=== PATIENT | male | born 1965 | race Caucasian/White ===

== ENCOUNTER 2022-07-29 15:00 | Outpatient (RCR) | payer BC, SELFPAY | END 2023-03-02 23:59 | disposition home or self-care (01) | PROVIDERS: PCP Family Medicine; Visit Provider Family Medicine | DX: M54.40 Lumbago with sciatica, unspecified side (principal); Z51.89 Encounter for other specified aftercare | CPT/HCPCS: 97012; 97110; 97140; 97162 ==

== ENCOUNTER 2023-02-16 06:09 | Day surgery (SDC) | payer BC, SELFPAY ==
[2023-02-16] MEDS: LACTATED RINGERS 1000 ML 1,000 ML 100 ML IV (06:10)
[2023-02-16] MEDS: fentaNYL 100 MCG/2 ML inj IVP (06:10)
[2023-02-16] MEDS: MIDAZOLAM HCL 1 MG/ML inj IVP (06:10)
[2023-02-16] MEDS: CELECOXIB 200 MG CAPSULE PO (06:10)
[2023-02-16] MEDS: ACETAMINOPHEN 500 MG TABLET 1000 MG PO (06:10)
[2023-02-16] MEDS: OXYCODONE (CR) 10 MG TAB.ER.12H PO (06:10)
[2023-02-16 06:26] VITALS: BMI 29.2
[2023-02-16] MEDS: SODIUM CHLORIDE 0.9 % (FLUSH) 10 ML SYRINGE IVF (06:48)
[2023-02-16 06:55] VITALS: BP 126/86; PULSE 69; RESP 18; TEMP 36.3; O2SAT 97
[2023-02-16 07:06] VITALS: BP 133/81; PULSE 66; RESP 18; O2SAT 99
[2023-02-16] MEDS: CEFAZOLIN 2 GM INJ IVP (07:25)
--- NOTE | 2023-02-16 08:50 | P.ORPRC_ITS ---
Procedure Note Date of procedure: 02/16/23 Procedure: PREOPERATIVE DIAGNOSIS: Left thumb CMC joint osteoarthritis POSTOPERATIVE DIAGNOSIS: Left thumb CMC joint osteoarthritis NAME OF OPERATION: Left thumb CMC arthroplasty (LRTI) SURGEON: Saul Joseph MD B2B APPOINTMENT SETTER: Lorena Robiosn PA-C ANESTHESIA: Axillary block plus monitored anesthesia care ESTIMATED BLOOD LOSS: 0 mL COMPLICATIONS: None SPECIMENS: None DRAINS: None PREOPERATIVE ANTIBIOTICS: Ancef 2 grams INDICATIONS: The patient is a 57-year-old male with a history of left thumb CMC joint osteoarthritis. Despite appropriate nonoperative management, including activity modification, antiinflammatories, ztzw-esr-oltnzah pain medication, bracing, occupational therapy, and injections they continue to have pain and disability. Operative intervention was offered. The risks, benefits and expected outcomes were discussed in detail. These included but were not limited to: Infection, bleeding, injury to blood vessel or nerve, venous thromboembolism. All questions were answered to their satisfaction. Use of an human resources assistant manager was necessary for patient positioning, soft tissue retraction, wound closure and dressing and splint application. PROCEDURE: An axillary block was placed by anesthesia. The patient was placed supine on the operating room table. IV sedation was administered. The left upper extremity was prepped and draped in the usual sterile fashion. The limb was exsanguinated with the Joseph bandage. The pneumatic tourniquet was inflated to 250 mmHg. A longitudinal incision was made just dorsal to the 1st dorsal compartment at the base of the thumb. Subcutaneous dissection was taken with tenotomy scis sors. Several small crossing veins were cauterized and divided. The base of the thumb metacarpal was exposed. The CMC joint capsule was incised longitudinally. Subperiosteal dissection of the trapezium was carried both dorsally and volarly. Likewise, the base of the thumb metacarpal was subperiosteally exposed. The trapezium was dissected free with the 15 blade and the [place] elevator. It was removed intact. Attention was then turned to the FCR graft harvest. A transverse incision was made at the musculotendinous junction of the FCR in the volar forearm. Subcutaneous dissection was taken with tenotomy scissors to the tendon. The tendon was freed up from the muscle fibers and was divided transversely. We then pulled the tendon graft into the distal incision at the base of the thumb. We placed a 2-0 FiberWire suture in the deep capsule. A 2.8 mm socket was drilled on the radial side of the base of the index finger metacarpal. A loop of labral tape was placed in the socket and secured with a 3 mm x 8 mm BioComposite anchor. A guide pin was drilled through the dorsum of the base of the thumb metacarpal exiting at the volar peak of the base of thumb metacarpal. A 5 mm tunnel was drilled. The tendon passer was placed through the tunnel. We pulled the tendon graft and both limbs of the labral tape into the tunnel. We maximally tensioned the graft and then placed a 4.75 x 15 mm Arthrex BioComposite tenodesis screw just proximal to the graft. The graft was then pulled proximally and was secured to the dorsal bone of the base of the metacarpal with 2-0 FiberWire suture x2. We then used our previously placed 2-0 FiberWire suture in the deep capsule and folded the graft back and forth over these sutures. The graft was placed in the depth of the wound and this FiberW mathew suture was tied over the top to secure it in position. The wound was irrigated with normal saline. The capsule was closed with a 3-0 Vicryl in an interrupted wzpkys-pa-hdaua fashion. Wounds were closed with the 3-0 Vicryl and a 4-0 Monocryl. Glue was used to seal the skin. A dry dressing and short-arm thumb spica splint were applied, the tourniquet was released. Sponge and needle counts were correct x 2. The patient tolerated the procedure well. There were no apparent complications. They were carefully transferred to the hospital bed and taken to the postanesthesia care unit in satisfactory condition. PLAN: The patient will be discharged to home. They will work on ice and elevation of the hand. They will follow up in the office next week for wound check and three views of the thumb, out of the splint prior to being seen, in preparation for a forearm based thumb spica Orthoplast splint and gentle range of motion.
[2023-02-16 09:30] VITALS: BP 132/88; PULSE 62; RESP 16; TEMP 36.4; O2SAT 94
--- NOTE | 2023-02-16 09:37 | W.ANESCHARGE ---
Anesthesia Charges Start Date/Time Anesthesia Start Date: 02/16/23 Anesthesia Start Time: 07:14 Stop Date/Time Anesthesia Stop Date: 02/16/23 Anesthesia Stop Time: 09:32
[2023-02-16 09:46] VITALS: BP 110/88; PULSE 66; RESP 18; O2SAT 97
[2023-02-16 10:00] VITALS: BP 114/93; PULSE 62; RESP 20; O2SAT 95
--- NOTE | 2023-02-16 10:09 | P.NB_ITS ---
Nerve Block Nerve Block Time Seen by Provider: 07:00 Type of block requested by surgeon for post-operative analgesia: axillary Side: left Time out performed: Yes Verification of patient name: Yes Verification of date of : Yes Site marking: site marked Name of person performing procedure: Almas Wood Continuous monitoring Was continuous monitoring of O2 sat, B/P, nuclear monitoring technician, recorded every 15 minutes?: Yes Procedure Checklist: sterile prep, needles and gloves Ultrasound guided. Images saved: Yes Medications given in 5ml increments after negative aspiration: Ropivicaine %: 0.5 mL: 20 Needle gauge: 20 Decadron (mg): 10 Precedex (mcg): 25 Patient tolerated procedure well: Yes Additional comments: Injected in 5ml increments after negative aspiration Block Charges Block Charge (with Pro Fee): Axillary Nerve Use of Ultrasound Machine for Block: Yes- US Guidance/pain block
--- NOTE | 2023-02-16 10:14 | SUR.PREOP ---
TIME?OUT:?0700 PT/RN/MDA?VERIFICATION?OF?SURGICAL?SITE,?PROCEDURE,?AND?CONSENT OBTAINED?PRIOR?TO?INVASIVE?PROCEDURE.left thumb rn surgical supplies sterilizer pt and consent
[2023-02-16 10:15] VITALS: BP 112/74; PULSE 64; RESP 20; TEMP 36.7; O2SAT 98
== END 2023-02-16 10:35 | disposition home or self-care (01) ==
PROVIDERS: PCP Family Medicine; Visit Provider Orthopaedic Surgery
PROC: (CPT 25447; principal; 2023-02-16 07:15)
DX: M19.042 Primary osteoarthritis, left hand (principal); G89.18 Other acute postprocedural pain
CPT/HCPCS: 25447; 20924; 1830; 64450; 76942; A4580; A9270; C1713; J0690; J1100; J2250; J2704; J2795; J3010; J7120

== ENCOUNTER 2023-05-17 14:30 | Outpatient (RCR) | payer BC, SELFPAY ==
--- NOTE | 2023-03-03 09:57 | PT.OPEX ---
PT [facility] Outpatient Eval PT [facility] Outpatient Eval Start: 03/03/23 07:56 Freq: Status: Active Protocol: Document 03/03/23 07:57 AMS (Rec: 03/03/23 09:44 AMS [id number]) E-signed By Shanna Jones, PT Physical Therapy Outpatient Evaluation Insurance Information Insurance Name [employer] Medical Diagnosis Patellofemoral disorders, unspecified knee Treating Diagnosis Left knee pain Muscle weakness Referring MD Noreen Henderson Subjective Subjective Pt presents to physical therapy with concerns of left knee pain for the past year. No incidents that occurred around this time, seemed to happen more gradually. Denies numbness or tingling, previous knee injury, catching/ clicking, or surgeries. He jumped off a trailer a month and a half ago recently and has developed worsened superior medial and lateral knee pain since then. He cannot recall how he landed. After this, he could barely walk for two weeks due to pain, but this has since improved. He has pain in the knee going down hill or down stairs. Sleep is unaffected by the knee. He has been suffering with runner's knee he states. Endorses pain with knee hyperextension when he is standing that he describes as locking. No swelling in the knee that he has noticed. Easing factors include gentle exercises he found online/ general rest; ;no other previous treatments. Aggravating factors include pivoting, twisting, going down stairs, walking longer distances, and jogging. He is on short term disability for his recent CMC arthroplasty on 02/16/23. Not much heavy lifting required. PMH includes includes RA, Sjogren's, bilateral foot pain (pt states he nearly froze them at 15 yo), and hypertension. Pt would like to be able to jog again as he is currently sedentary. Plans on getting a [employer] membership in the next several weeks. He has been to PT before for his low back and OT for his thumb. Pain Comments 2/10 with certain activities, 0/10 at rest, 5 or 6/10 at worst Date of Last Physician Visit 02/22/23 Current Work Status Short Term Disability Occupation supply chain engineer for [employer] Precautions Treatment Precautions/Contraindications Rheumatoid arthritis, hypertension, Sjogren's Therapy Limitations/Systems Review Not Limited Objective Other/Pertinent Objective IMAGING: X-rays are taken of the left knee today AP, lateral views, sunrise view. Preliminary review shows very small osteophytic spurring off the proximal and distal poles of the patella. No patellofemoral joint space narrowing. No significant osteophytic spurring elsewhere in the knee. No significant joint space narrowing medial and lateral compartments, there may be slight medial compartment joint space narrowing and slight sclerosis on x-ray. -Noreen Henderson, 02/22/23 GAIT ASSESSMENT: Pt demonstrates normal, non- antalgic gait with full knee extension and equal step length. OBSERVATION: Swelling: None noted Mild bruising noted over tibial tuberosity left BALANCE SLS: R 19 seconds, L 15 seconds, no pain FUNCTIONAL MOBILITY Double leg squat: quad- dominant, mild pain with deep flexion to ascend motion Step down/SL squat: No pain with step down if he locks his left knee, able to SL squat to 45 deg B with pain on left KNEE ROM L: 10-0-145, mild pain at end range flexion and with passive hyperextension R: 10-0-145 HIP ROM (R/L) Flexion: WNL Extension: WNL Internal Rotation: 45/25 External Rotation: 45/45 Abduction: WNL LLE MMT: Hip flexion: R 5/5 L 5/5 Hip abduction: R 4+/5 L 4+/5 Hip extension: R 5/5 L 5/5 Knee flexion: R 5/5 L 5/5 Knee extension: R 5/5 L 5/5 Ankle plantarflexion ( unilateral heel raise): L: 6 reps*, R: 4 reps* Quadriceps isometric force production at 90 deg: R 63 lbs , L 72 lbs, pain-free for all *Pain in bilateral feet END RANGE QUAD CONTROL Straight leg raise: No extensor lag noted Heel pop: Mildly asymmetrical SPECIAL TESTS Knee Ligamentous: -Varus 0: - -Varus 30: - -Valgus 0: - -Valgus 30: - -Lachmans: - Knee Meniscus: -Codie?s: - -Joint Line Palpation: - JOINT MOBILITY/PALPATION No TTP over quad tendon, patella, medial or lateral joint line, tibial tuberosity, or surrounding musculature TX: Patient was educated on anatomy, physiology as it relates to current condition and HEP with use of handout/ [employer]. Patient verbalizes understanding and agrees with POC/goals. Education: -Soreness rules with goal of symptoms returning to baseline within 24 hours Pt educated in the following exercises to improve tissue tolerance and strength with verbal/tactile cues as necessary: Access Code: [email or web address] URL: [email or web address]/ Date: 03/03/2023 Prepared by: Shanna Jones Exercises - Single Leg Bridge - 1 x daily - 3-4 x weekly - 3 sets - 8-12 reps - Lateral Step Down - 1 x daily - 3-4 x weekly - 3 sets - 10-12 reps - Wall Squat - 1 x daily - 3- 4 x weekly - 3 sets - 30-45 seconds hold Functional Test Performed & Score LEFS: 64/80 = 80% Assessment Assessment/Impression Pt is a 57-year-old male who presents with concerns of subacute on chronic left knee pain and low severity and irritability. Signs and symptoms are likely indicating / consistent with patellofemoral pain. On exam, patient also demonstrates notable objective findings including full knee ROM, mildly decreased active end range quad control on left, mildly impaired balance, and decreased lower extremity strength, leading to difficulties with descending stairs, walking longer distances, running, and squatting. Pain noted with end -range deep knee flexion, passive end-range knee hyperextension, and single leg squatting. Unable to reproduce pain with stair descent on exam. Demonstrates decreased force production bilaterally with isometric quadriceps testing at 90 degrees; will re-assess next visit as learning effect may have affected results (right tested first). Patient is appropriate for skilled physical therapy services to address the above deficits. Pt was agreeable with plan of care and goals established. Primary Functional Limitations descending stairs, walking longer distances, running, and squatting Plan of Care Rehabilitation Potential Good Physical Therapy Goals In 2 sessions: 1. Pt will demonstrate consistent HEP compliance to ensure progress in reaching established goals during course of care. In 6-8 sessions: 2. Pt will be able to ascend/ descend 1 flight of stairs pain-free in order to perform ADLs. 3. Pt will be able to walk up to or >1 mile without pain. 4. Pt will exhibit quad deficit of 10% or less to indicate adequate strength for functional progression through rehab. Coordination/Communication With Referral Source Treatment Plan/Direct Interventions Gait Training,Joint Mobilization,Manual Therapy, Neuromuscular Re-ed,Self-Care/ Home Management,Therapeutic Activities,Therapeutic Exercises Frequency/Duration 1x/week for 6-8 sessions Patient Will Be Discharged From Therapy Completion of LTG(s), Independent w/HEP, Independently Progressing Evaluation Billing Untimed Code Treatment Minutes 30 Complexity Low Certification Information Physician Comment/Change : Physician NPI Number #
== END 2023-06-28 17:15 | disposition home or self-care (01) ==
PROVIDERS: PCP Family Medicine; Visit Provider Orthopaedic Surgery
DX: M18.12 Unilateral primary osteoarthritis of first carpometacarpal joint, left hand (principal); M22.2X2 Patellofemoral disorders, left knee; Z98.890 Other specified postprocedural states; Z51.89 Encounter for other specified aftercare
CPT/HCPCS: 97035; 97110; 97140; 97161; 97165; L3808